=== PATIENT | male | born 1995 | race Caucasian/White ===

== ENCOUNTER 2019-01-30 23:22 | Emergency (ER) | payer BC, OTHER ==
[2019-01-31] MEDS ORDERED: Ibuprofen TAB* 400 MG PO ONE (00:10)
--- NOTE | 2019-01-31 00:10 | ED ---
Upper Extremity Pain - HPI Summary HPI Summary: This patient is a 23 year old M presenting to [facility] with a chief complaint of right thumb injury while playing lacrosse since 21:00, 01/30/19. The patient rates the pain 6/10 in severity. Patient reports right thumb pain and bleeding around the right thumb. - History of Current Complaint Chief Complaint: EDExtremityUpper Stated Complaint: RT THUMB INJURY PER PT Time Seen by Provider: 01/30/19 23:52 Hx Obtained From: Patient Mechanism Of Injury: Blunt Trauma Onset/Duration: Started Hours Ago - 3 hours ago, Still Present Timing: Constant, Lasting Hours Severity Initially: Moderate Severity Currently: Moderate Pain Location: Finger - Right thumb Aggravating Factor(s): Movement Alleviating Factor(s): Nothing Associated Signs & Symptoms: Positive: Other - Right thumb pain and bleeding around the right thunb. - Allergies/Home Medications Allergies/Adverse Reactions: Allergies Allergy/AdvReac Type Severity Reaction Status Date / Time Penicillins Allergy Unknown Verified 01/30/19 23:28 Reaction Details Home Medications: Home Medications Ibuprofen 200 mg PO Q6H PRN 01/30/19 [History Confirmed 01/30/19] PMH/Surg Hx/FS Hx/Imm Hx Endocrine/Hematology History: Denies: Hx Diabetes Respiratory History: Reports: Hx Asthma - Surgical History Surgery Procedure, Year, and Place: None Infectious Disease History: No Infectious Disease History: Reports: Traveled Outside the [place] in Last 30 Days - Family History Known Family History: Negative: Cardiac Disease, Hypertension, Diabetes - Social History Alcohol Use: Occasionally Substance Use Type: Reports: None Smoking Status (MU): Never Smoked Tobacco Review of Systems Negative: Fever Positive: Other - Right thumb pain and bleeding around the right thumb All Other Systems Reviewed And Are Negative: Yes Physical Exam - Summary Physical Exam Summary: VITAL SIGNS: Reviewed. GENERAL: Patient is a well-developed and nourished MALE who is lying comfortable in the stretcher. Patient is not in any acute respiratory distress. HEAD AND FACE: No signs of trauma. No ecchymosis, hematomas or skull depressions. No sinus tenderness. EYES: PERRLA, EOMI x 2, No injected conjunctiva, no nystagmus. EARS: Hearing grossly intact. Ear canals and tympanic membranes are within normal limits. MOUTH: Oropharynx within normal limits. NECK: Supple, trachea is midline, no adenopathy, no JVD, no carotid bruit, no c- spine tenderness, neck with full ROM. CHEST: Symmetric, no tenderness at palpation LUNGS: Clear to auscultation bilaterally. No wheezing or crackles. CVS: Regular rate and rhythm, S1 and S2 present, no murmurs or gallops appreciated. ABDOMEN: Soft, non-tender. No signs of distention. No rebound, no guarding, and no masses palpated. Bowel sounds are normal. EXTREMITIES: FROM in all major joints, no edema, no cyanosis or clubbing. Tenderness and small subungual hematoma on the radial side of his right thumb NEURO: Alert and oriented x 3. No acute neurological deficits. Speech is normal and follows commands. SKIN: Dry and warm Triage Information Reviewed: Yes Vital Signs On Initial Exam: Initial Vitals Temp Pulse Resp BP Pulse Ox 98.1 F 78 20 151/99 98 01/30/19 23:25 01/30/19 23:25 01/30/19 23:25 01/30/19 23:25 01/30/19 23:25 Vital Signs Reviewed: Yes Procedures - Procedure Summary Procedure Summary: Procedure note 01:05 subungual hematoma evacuation. Electrocautery was used, small puncture made over the radial side of the nail which bled. Diagnostics - Vital Signs Vital Signs Temp Pulse Resp BP Pulse Ox 01/30/19 23:25 98.1 F 78 20 151/99 98 - Laboratory Lab Statement: Any lab studies that have been ordered have been reviewed, and results considered in the medical decision making process. - Radiology Right Thumb X-Ray Radiology Interpretation Completed By: ED Physician Summary of Radiographic Findings: 00:57. No fracture, no acute processes. Pending official report. Course/Dx - Course Course Of Treatment: This patient is a 23 year old M presenting to [facility] with a chief complaint of right thumb injury while playing lacrosse since 21:00, . Right thumb x-ray showed no acute processes. Procedure note 01:05 subungual hematoma evacuation. Electrocautery was used, small puncture made over the radial side of the nail which bled. Pt will be d/c with a dx of subungual hematoma. - Diagnoses Provider Diagnoses: Subungual hematoma Discharge - Sign-Out/Discharge Documenting (check all that apply): Patient Departure - D/C home Patient Received Moderate/Deep Sedation with Procedure: No - Discharge Plan Condition: Stable Disposition: HOME Patient Education Materials: Subungual Hematoma (ED) Referrals: [facility] [Outside] - 3 Days Additional Instructions: PLEASE RETURN TO THE ED IMMEDIATELY FOR WORSENING OR CONCERNING SYMPTOMS. - Attestation Statements Document Initiated by Scribe: Yes Documenting Scribe: Kit Law Provider For Whom Scribe is Documenting (Include Credential): Vannessa Craft MD Scribe Attestation: Kit Goodwin, scribed for Vannessa Craft MD on 01/31/19 at 0104. Status of Scribe Document: Ready
[2019-01-31 01:18] VITALS: BP 152/95
== END 2019-01-31 01:10 | disposition home or self-care (01) ==
LOC: ED 23:22
DX: S60.111A Contusion of right thumb with damage to nail, initial encounter (principal); Z88.0 Allergy status to penicillin; W22.8XXA Striking against or struck by other objects, initial encounter; Y93.65 Activity, lacrosse and field hockey; Y92.9 Unspecified place or not applicable
CPT/HCPCS: 10140; 99285; A9270-GY